=== PATIENT | male | born 1990 | race Caucasian/White ===

== ENCOUNTER 2017-04-05 17:00 | Emergency (ER) | payer OTHER ==
[~2017-04-05] VITALS: Ht 175.3 cm; Wt 87.4 kg
[2017-04-05 17:00] VITALS: BP 146/67
[2017-04-05] MEDS ORDERED: TRAM50TA PO (17:22)
[2017-04-05] MEDS ORDERED: PRED20TA PO (17:22)
--- NOTE | 2017-04-05 17:25 | PHYS DOC ---
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 Patient states that 2 days ago during PT he felt as if his left upper back muscles under the spine of the scapula began to get sore. Since that time the muscles have stiffened and become painful, worse with movement and deep breaths and relieved with rest. He called the triage nurse at [facility] she recommended heating pad he has been trying that with Tylenol without any relief. He denies any actual twinge or pops during workouts, no cough or shortness of breath no fever chills or body aches. No prior back issues, no midline or bony pain. Timing/Duration: other Severity: moderate Modifying Factors: worse with movement, improves with rest Associated Symptoms: other Allergies: Coded Allergies: No Known Drug Allergies (Unverified , 04/05/17) Past Medical History Medical History: no pertinent history Surgical History: noncontributory Social History Smoker: non-smoker Alcohol: rarely Drugs: none Review of Systems Constitutional: denies chills, denies fever Respiratory: denies cough, denies shortness of breath Cardiovascular: denies chest pain, denies palpitations Gastrointestinal: denies nausea, denies vomiting Musculoskeletal: see HPI Psychiatric/Neurological: denies numbness, denies paresthesia, denies weakness Physical Exam General Appearance: WD/WN, no apparent distress Ear, Nose, Throat: hearing grossly normal, normal ENT inspection Neck: non-tender, full range of motion Respiratory: normal breath sounds, no respiratory distress Back: no CVA tenderness, no vertebral tenderness, other (subscapularis muscle hypertonicity with tenderness, no palpable deformity swelling or ecchymosis. No bony tenderness) Extremities: normal range of motion, non-tender, normal inspection Neurologic/Psychiatric: manager field services II-XII nml as tested, no motor/sensory deficits, alert, normal mood/affect, oriented x 3 Skin: normal color, warm/dry Orders, Labs, Meds I discussed the treatment plan at length. I discussed signs and symptoms to monitor as well as urgent indications to return to the department. I discussed prescription and [id number] medications as well as adjunct therapeutic modalities. I discussed follow-up at [facility] on Friday the patient expressed agreement and understanding with the treatment plan. Toradol 60 mg IM. Departure Time of Disposition: 17:22 Disposition: 01 HOME, SELF-CARE Diagnosis: Thoracic strain Condition: GOOD Patient Instructions: Thoracic Strain, Ocit-to-Zdog Additional Instructions: Keep activity to "pain-free." Heating pad 15 minutes, 4-6 times daily followed by gentle stretching. OTC tylenol as needed. Rx: tramadol 50mg #12, prednisone Take tramadol with food to avoid nausea, sedation precautions. Consider chiropractic or massage as adjunct to therapy. Follow up at [facility] Friday for recheck and further evaluation, possible PT referral. Return to ED with new or changing symptoms. KURT ARRIETA DO Apr 05, 2017 17:25
[2017-04-05] MEDS ORDERED: KETOROLAC 60 MG/2 ML VIAL. IM ONE (17:30)
== END 2017-04-05 17:33 | disposition home or self-care (01) ==
LOC: ER 17:00
DX: S29.012A Strain of muscle and tendon of back wall of thorax, initial encounter (principal); X58.XXXA Exposure to other specified factors, initial encounter; Y93.89 Activity, other specified; Y99.8 Other external cause status; Y92.89 Other specified places as the place of occurrence of the external cause
CPT/HCPCS: 96372; 99283; J1885

== ENCOUNTER 2017-04-10 20:27 | Emergency (ER) | payer OTHER ==
[~2017-04-10] VITALS: Ht 175.3 cm; Wt 84.0 kg
[~2017-04-10 20:27] MED LIST: PRED20TA PO; TRAM50TA PO
[2017-04-10 20:43] VITALS: BP 129/71
[2017-04-10] MEDS ORDERED: IV NORMAL SALINE 1,000ML 1,000 ML IV ONE (21:15)
[2017-04-10] MEDS ORDERED: ONDANSETRON PF 4 MG/2 ML VIAL. IV ONE (21:15)
[2017-04-10] MEDS ORDERED: CONTRAST GIVEN MC PRN (21:15)
[2017-04-10 21:25] LABS: BASO % 0 % (0-3); EOS # 0.1 x10^3/uL (0.0-0.7); EOS % 1 % (0-3); HEMATOCRIT 36.4 % (39.0-53.0); HEMOGLOBIN 12.7 g/dL (13.0-17.5); LYMPH # 2.4 x10^3/uL (1.0-4.8); LYMPH % 24 % (24-48); MEAN CORPUSCULAR HEMOGLOBIN 31 pg (25-35); MEAN CORPUSCULAR HGB CONC 35 g/dL (31-37); MEAN CORPUSCULAR VOLUME 87 fL (79-100); MONO # 0.9 x10^3/uL (0.0-1.1); MONO % 10 % (0-9); NEUT # 6.2 x10^3uL (1.8-7.7); NEUT % 64 % (31-73); PLATELET COUNT 239 x10^3/uL (140-400); RED BLOOD COUNT 4.17 x10^6/uL (4.30-5.70); RED CELL DISTRIBUTION WIDTH 13.5 % (11.5-14.5); WHITE BLOOD COUNT 9.7 x10^3/uL (4.0-11.0)
[2017-04-10] MEDS ORDERED: IOHEXOL 300 MG/ML 75 ML VIAL. IV ONE (21:30)
[2017-04-10 21:37] LABS: ALBUMIN 3.6 g/dL (3.4-5.0); CALCIUM 8.6 mg/dL (8.5-10.1); CREATININE 1.3 mg/dL (0.7-1.3); GFR 66.7; POTASSIUM 3.4 mmol/L (3.5-5.1); TOTAL BILIRUBIN 0.2 mg/dL (0.2-1.0); TOTAL PROTEIN 7.1 g/dL (6.4-8.2)
--- NOTE | 2017-04-10 21:54 | RAD ---
Indication: Severe lower abdominal pain with pressure, constipation nausea and vomiting. TECHNIQUE: CT abdomen and pelvis with 75 mL of Omnipaque 350 with multiplanar reformats. COMPARISON: None FINDINGS: Heart is normal in size. No pericardial or pleural effusion. Clear lung bases. Liver, gallbladder, gallbladder, pancreas, adrenal glands are within normal limits. No nephrolithiasis or hydronephrosis. No retroperitoneal or pelvic adenopathy. No bowel obstruction. Normal appendix. Bladder within normal limits. Prostate and seminal vesicles show no mass lesion. No suspicious bony lesion. IMPRESSION: No acute findings. No bowel obstruction. Normal appendix. No nephrolithiasis. Electronically signed by: Fabian Richardson DO (04/10/2017 9:51 PM) [facility]
[2017-04-10 22:19] LABS: BILIRUBIN,URINE NEG (NEG); CLARITY,URINE CLEAR; COLOR,URINE STRAW; GLUCOSE,URINE NEG (NEG)
[2017-04-10 22:20] LABS: BACTERIA,URINE 0 /HPF (0-FEW); NITRITE,URINE NEG (NEG); UROBILINOGEN,URINE 0.2 mg/dL (0.2 mg/dL); WBC,URINE OCC /HPF (0-4)
[2017-04-10] MEDS ORDERED: DICY10CA53 PO (23:00)
[2017-04-10] MEDS ORDERED: ONDA4TAB10 SL (23:00)
--- NOTE | 2017-04-10 23:00 | PHYS DOC ---
Past History Past Medical History: No Pertinent History Past Surgical History: No Surgical History Alcohol Use: None Drug Use: None Adult General Chief Complaint Chief Complaint: ABDOMINAL PAIN HPI HPI Patient is a 26 year old male who presents with abdominal pain. The patient reports 1 day history of lower abdominal pain greatest in right lower quadrant. Reports associated nausea & difficulty having bowel movement. Reports normal bowel movement yesterday. Denies fevers/chills, vomiting, diarrhea, dysuria, hematuria. Denies previous history of similar symptoms, denies history of abdominal surgeries. Review of Systems Review of Systems Constitutional: Denies fever or chills Eyes: Denies change in visual acuity HENT: Denies nasal congestion or sore throat Respiratory: Denies cough or shortness of breath Cardiovascular: Denies chest pain or edema GI: Reports abdominal pain, nausea, denies vomiting, bloody stools or diarrhea : Denies dysuria or hematuria Musculoskeletal: Denies back pain or joint pain Integument: Denies rash or skin lesions Neurologic: Denies headache All other systems were reviewed and found to be within normal limits, except as documented in this note. Current Medications Current Medications Current Medications Medications (Trade) Dose Ordered Sig/Víctor Start Time Stop Time Status Last Admin Dose Admin Fentanyl Citrate (Fentanyl 2ml Vial) 50 mcg PRN Q15MIN PRN 04/10/17 21:15 04/11/17 21:14 04/10/17 21:28 50 MCG Info (Do NOT chart on this entry -- for MONITORING) 1 each PRN DAILY PRN 04/10/17 21:15 04/12/17 21:14 Iohexol (Omnipaque 300 Mg/ml) 75 ml 1X ONCE 04/10/17 21:30 04/10/17 21:31 DC 04/10/17 21:23 75 ML Ondansetron HCl (Zofran) 4 mg 1X ONCE 04/10/17 21:15 04/10/17 21:16 DC 04/10/17 21:15 4 MG Sodium Chloride 1,000 ml @ 1,000 mls/hr 1X ONCE 04/10/17 21:15 04/10/17 22:15 DC 04/10/17 21:15 1,000 MLS/HR Allergies Allergies Allergies Coded Allergies Type Severity Reaction Last Updated Verified No Known Drug Allergies 04/05/17 No Physical Exam Physical Exam Constitutional: Well developed, well nourished, no acute distress, non-toxic appearance. HENT: Normocephalic, atraumatic, bilateral external ears normal, oropharynx moist, nose normal. Eyes: conjunctiva normal, no discharge. Neck: supple, no stridor. Cardiovascular: RRR, no murmurs, no edema. Lungs & Thorax: LCTAB, no wheezing, no respiratory distress. Abdomen: soft, moderate right lower quadrant tenderness with voluntary guarding , no rebound tenderness, also suprapubic tenderness is noted, no masses or pulsatile masses, nondistended. Skin: Warm, dry, no erythema, no rash. Back: No CVA tenderness. Extremities: No tenderness, no edema. Neurologic: Alert and oriented X 3, no focal deficits noted. Psychologic: Affect normal, judgement normal, mood normal. Current Patient Data Vital Signs Vital Signs Date Time Temp Pulse Resp B/P (MAP) Pulse Ox O2 Delivery O2 Flow Rate FiO2 04/10/17 21:28 20 98 Room Air 04/10/17 20:43 98.1 77 Lab Results Laboratory Tests Test 04/10/17 21:03 04/10/17 21:50 White Blood Count 9.7 x10^3/uL (4.0-11.0) Red Blood Count 4.17 x10^6/uL (4.30-5.70) L Hemoglobin 12.7 g/dL (13.0-17.5) L Hematocrit 36.4 % (39.0-53.0) L Mean Corpuscular Volume 87 fL (79-100) Mean Corpuscular Hemoglobin 31 pg (25-35) Mean Corpuscular Hemoglobin Concent 35 g/dL (31-37) Red Cell Distribution Width 13.5 % (11.5-14.5) Platelet Count 239 x10^3/uL (140-400) Neutrophils (%) (Auto) 64 % (31-73) Lymphocytes (%) (Auto) 24 % (24-48) Monocytes (%) (Auto) 10 % (0-9) H Eosinophils (%) (Auto) 1 % (0-3) Basophils (%) (Auto) 0 % (0-3) Neutrophils # (Auto) 6.2 x10^3uL (1.8-7.7) Lymphocytes # (Auto) 2.4 x10^3/uL (1.0-4.8) Monocytes # (Auto) 0.9 x10^3/uL (0.0-1.1) Eosinophils # (Auto) 0.1 x10^3/uL (0.0-0.7) Basophils # (Auto) 0.0 x10^3/uL (0.0-0.2) Sodium Level 144 mmol/L (136-145) Potassium Level 3.4 mmol/L (3.5-5.1) L Chloride Level 105 mmol/L (98-107) Carbon Dioxide Level 27 mmol/L (21-32) Anion Gap 12 (6-14) Blood Urea Nitrogen 21 mg/dL (8-26) Creatinine 1.3 mg/dL (0.7-1.3) Estimated GFR (Cockcroft-Gault) 66.7 BUN/Creatinine Ratio 16 (6-20) Glucose Level 96 mg/dL (70-99) Calcium Level 8.6 mg/dL (8.5-10.1) Total Bilirubin 0.2 mg/dL (0.2-1.0) Aspartate Amino Transferase (AST) 14 U/L (15-37) L Alanine Aminotransferase (ALT) 29 U/L (16-63) Alkaline Phosphatase 79 U/L (46-116) Total Protein 7.1 g/dL (6.4-8.2) Albumin 3.6 g/dL (3.4-5.0) Albumin/Globulin Ratio 1.0 (1.0-1.7) Urine Collection Type Unknown Urine Color Straw Urine Clarity Clear Urine pH 5.5 Urine Specific Kersey 1.010 Urine Protein 100 mg/dl (NEG-TRACE) Urine Glucose (UA) Neg mg/dL (NEG) Urine Ketones (Stick) Neg mg/dL (NEG) Urine Blood Small (NEG) Urine Nitrite Neg (NEG) Urine Bilirubin Neg (NEG) Urine Urobilinogen Dipstick 0.2 mg/dL (0.2 mg/dL) Urine Leukocyte Esterase Neg (NEG) Urine RBC 3-5 /HPF (0-2) Urine WBC Occ /HPF (0-4) Urine Squamous Epithelial Cells None /LPF Urine Bacteria 0 /HPF (0-FEW) Urine Mucus Slight /LPF EKG EKG [] Radiology/Procedures Radiology/Procedures PROCEDURE: CT ABD PELV W/ IV CONTRST ONLY Indication: Severe lower abdominal pain with pressure, constipation nausea and vomiting. TECHNIQUE: CT abdomen and pelvis with 75 mL of Omnipaque 350 with multiplanar reformats. COMPARISON: None FINDINGS: Heart is normal in size. No pericardial or pleural effusion. Clear lung bases. Liver, gallbladder, gallbladder, pancreas, adrenal glands are within normal limits. No nephrolithiasis or hydronephrosis. No retroperitoneal or pelvic adenopathy. No bowel obstruction. Normal appendix. Bladder within normal limits. Prostate and seminal vesicles show no mass lesion. No suspicious bony lesion. IMPRESSION: No acute findings. No bowel obstruction. Normal appendix. No nephrolithiasis. Electronically signed by: Fabian Rogers DO (04/10/2017 9:51 PM) [facility] DICTATED AND SIGNED BY: FABIAN ROGERS DO DATE: 04/10/172144[] Course & Med Decision Making Course & Med Decision Making Pertinent Labs and Imaging studies reviewed. (See chart for details) The patient presents with abdominal pain. Gave IV fluids, zofran, pain medication. Obtained labs, CT abdomen/pelvis. No acute cause of pain was identified. Recommend rest, hydration with clear liquids, zofran for nausea, bentyl for pain. Follow up with primary care in 2-3 days if not improving. Come back for high fever, severe pain, uncontrolled vomiting, any otherwise worsening condition. Discharged home in stable condition. [] Dragon Disclaimer Dragon Disclaimer This electronic medical record was generated, in whole or in part, using a voice recognition dictation system. Departure Departure: Impression: Primary Impression: Abdominal pain Disposition: 01 HOME, SELF-CARE Condition: STABLE Referrals: PCP,UNKNOWN (PCP) Patient Instructions: Abdominal Pain, [id number] Additional Instructions: You were seen in the emergency department today for abdominal pain. Tests here did not show serious cause of symptoms. This could be a virus. Please rest, drink small sips of clear liquids to stay hydrated. Take Zofran for nausea and Bentyl for pain. Follow-up with a primary care physician in 2-3 days if not improving. Return to the emergency department for high fever, severe pain, uncontrolled vomiting, any otherwise worsening condition. Scripts Dicyclomine Hcl (BENTYL) 10 Mg Capsule 1 CAP PO TID Y for abdominal cramps, #20 CAP 0 Refills Prov: LIDIA GUTIERREZ MD 04/10/17 Ondansetron (ZOFRAN ODT) 4 Mg Tab.rapdis 1 TAB SL Q8HRS, #10 TAB Prov: LIDIA GUTIERREZ MD 04/10/17 LIDIA GUTIERREZ MD Apr 10, 2017 23:00
[2017-04-10] MEDS ORDERED: ONDANSETRON 4MG ODT 4TABLET STARTPACK. PO ONE (23:30)
[2017-04-10] MEDS ORDERED: ONDANSETRON ODT 4 MG TAB.RAPDIS PO ONE (23:30)
== END 2017-04-11 01:17 | disposition home or self-care (01) ==
LOC: ER 20:27
DX: R10.31 Right lower quadrant pain (principal); R11.0 Nausea
CPT/HCPCS: 36415; 74177; 80053; 81001; 85025; 96361; 96374; 96375; 99285; J2405; J3010; Q0162; Q9967; J7030

== ENCOUNTER 2017-10-22 00:08 | Emergency (ER) | payer OTHER ==
[~2017-10-22] VITALS: Ht 175.3 cm; Wt 84.0 kg
[~2017-10-22 00:08] MED LIST changes: +DICY10CA53 PO; +ONDA4TAB10 SL
--- NOTE | 2017-10-22 00:38 | ED.ADGEN ---
Past History Past Medical History: No Pertinent History Past Surgical History: No Surgical History Alcohol Use: None Drug Use: None Adult General HPI HPI Patient is a 26 year old male who presents with muscle spasm in the back. Patient states he was working out earlier today when he had a slow onset of pain and muscle spasm in the thoracic area of the back. He does relate that he had very similar symptoms in the past. The pain continued to worsen. This evening, it hurt too much to take deep breaths and he felt that he could not inflate his lungs. He has a follow-up appointment with his post physician in 2 days but he could not wait for that appointment because the pain was too severe. He has no focal neurologic complaints. He has not had a fever or chills. His pain is worse with movement and with deep inspiration. Pain is over the paraspinal muscles in the thoracic area. There is no midline tenderness. Review of Systems Review of Systems Constitutional: Denies fever or chills Eyes: Denies change in visual acuity HENT: Denies nasal congestion or sore throat Respiratory: Denies cough or shortness of breath Cardiovascular: No additional information not addressed in HPI Musculoskeletal: As described in history of present illness Integument: Denies rash or skin lesions Neurologic: Denies headache Endocrine: Denies polyuria or polydipsia All other systems were reviewed and found to be within normal limits, except as documented in this note. Current Medications Current Medications Current Medications Medications (Trade) Dose Ordered Sig/[facility] Start Time Stop Time Status Last Admin Dose Admin Acetaminophen/ Hydrocodone Bitart (Lortab 5/325) 1 tab 1X ONCE 10/22/17 01:00 10/22/17 01:01 DC 10/22/17 00:50 1 TAB Diazepam (Valium) 5 mg 1X ONCE 10/22/17 01:00 10/22/17 01:01 DC 10/22/17 00:50 5 MG Ibuprofen (Motrin) 800 mg 1X ONCE 10/22/17 01:00 10/22/17 01:01 DC 10/22/17 00:50 800 MG Allergies Allergies Allergies Coded Allergies Type Severity Reaction Last Updated Verified No Known Drug Allergies 04/05/17 No Physical Exam Physical Exam Constitutional: Well developed, well nourished, no acute distress, non-toxic appearance. HENT: Normocephalic, atraumatic, bilateral external ears normal, oropharynx moist Eyes: PERRLA, EOMI, conjunctiva normal, no discharge. Neck: Normal range of motion, no tenderness Cardiovascular:Heart rate regular rhythm Lungs & Thorax: Air movement bilaterally although the exam is limited as the patient has poor inspiratory effort Skin: Warm, dry, no erythema, no rash. Back: Pain and muscle spasm is present in the paraspinal muscles of the thoracic spine on both sides. There is no midline tenderness. Extremities: No tenderness, no edema. [] Neurologic: Alert and oriented X 3, normal motor function Psychologic: Affect normal, judgement normal Current Patient Data Vital Signs Vital Signs Date Time Temp Pulse Resp B/P (MAP) Pulse Ox O2 Delivery O2 Flow Rate FiO2 10/22/17 00:08 98.2 69 16 96 Room Air EKG EKG [] Radiology/Procedures Radiology/Procedures [] Course & Med Decision Making Course & Med Decision Making Pertinent Labs and Imaging studies reviewed. (See chart for details) Patient is seen and examined. He has poor effort with lung exam. Because of this , chest x-ray is ordered. Otherwise, the patient presents with musculoskeletal back pain. I did review his [place] prescription record. He has received 155 hydrocodone since the first of the year. I question the patient about this. He states he had some wisdom teeth removed and then had a separate surgery from that which is when he was prescribed medications. He has received no prescriptions since August 24. He does seem to be in some distress this evening. He is ordered to have one [place], one Valium, and 1 ibuprofen in the ER. Pending normal chest x-ray, patient will be discharged home on the same. He already has close follow-up with his primary care physician scheduled. Final Impression Final Impression Strain of thoracic back muscles Michael Disclaimer Dragon Disclaimer This electronic medical record was generated, in whole or in part, using a voice recognition dictation system. SAIMA LUZ DO October 22, 2017 00:38
[2017-10-22] MEDS ORDERED: diazePAM 5 MG TABLET PO ONE (01:00)
[2017-10-22] MEDS ORDERED: IBUPROFEN 800 MG TABLET. PO ONE (01:00)
[2017-10-22] MEDS ORDERED: HYDROcodone/APAP 5/325MG 1 TAB TABLET PO ONE (01:00)
[2017-10-22] MEDS ORDERED: HYDR-2762 PO (01:12)
[2017-10-22] MEDS ORDERED: DIAZ5TAB PO (01:12)
[2017-10-22] MEDS ORDERED: IBUP800T19 PO (01:12)
[2017-10-22 01:18] VITALS: BP 129/75
--- NOTE | 2017-10-22 08:09 | RAD ---
Portable chest, 10/22/2017: HISTORY: Upper back pain The heart size and pulmonary vascularity are normal. No pulmonary infiltrates are seen. There is no evidence of pleural fluid. IMPRESSION: No acute cardiopulmonary abnormality is detected. Electronically signed by: Everardo Navas MD (10/22/2017 8:05 AM) [facility]
== END 2017-10-22 01:45 | disposition home or self-care (01) ==
LOC: ER 00:08
DX: S29.012A Strain of muscle and tendon of back wall of thorax, initial encounter (principal); X58.XXXA Exposure to other specified factors, initial encounter; Y93.89 Activity, other specified; Y99.8 Other external cause status; Y92.89 Other specified places as the place of occurrence of the external cause
CPT/HCPCS: 71045; 99284

== ENCOUNTER 2018-04-05 12:40 | Emergency (ER) | payer OTHER ==
[~2018-04-05] VITALS: Ht 175.3 cm; Wt 96.6 kg
[~2018-04-05 12:40] MED LIST changes: +DIAZ5TAB PO; +HYDR-2762 PO; +IBUP800T19 PO
--- NOTE | 2018-04-05 13:08 | PHYS DOC ---
Past History Past Medical History: Anxiety, Depression Past Surgical History: No Surgical History Alcohol Use: Occasionally Drug Use: None Adult General Chief Complaint Chief Complaint: NAUSEA/VOMITING/DIARRHEA HPI HPI 27-year-old male presents with vomiting and diarrhea. The patient started vomiting early this morning. He has had 3 episodes while in the ER. He said 2 rounds of loose stool. He denies blood in either. Patient ate some salmon last night that he had thought out and then re-frozen thought out cooked. He is concerned is may have caused his illness. He did drink some alcohol yesterday but only about 3 drinks. He typically only drinks one day a week. Patient denies fever or chills. He has diffuse abdominal pain that started after he started vomiting. Review of Systems Review of Systems Constitutional: Denies fever or chills [] Eyes: Denies change in visual acuity, redness, or eye pain [] HENT: Denies nasal congestion or sore throat [] Respiratory: Denies cough or shortness of breath [] Cardiovascular: No additional information not addressed in HPI [] GI: Diffuse abdominal pain, vomiting, diarrhea[] : Denies dysuria or hematuria [] Musculoskeletal: Denies back pain or joint pain [] Integument: Denies rash or skin lesions [] Neurologic: Denies headache, focal weakness or sensory changes [] Endocrine: Denies polyuria or polydipsia [] All other systems were reviewed and found to be within normal limits, except as documented in this note. Current Medications Current Medications Current Medications Medications (Trade) Dose Ordered Sig/Víctor Start Time Stop Time Status Last Admin Dose Admin Ondansetron HCl (Zofran) 4 mg 1X ONCE 04/05/18 13:15 04/05/18 13:16 UNV Sodium Chloride 1,000 ml @ 1,000 mls/hr 1X ONCE 04/05/18 13:15 04/05/18 14:14 UNV Allergies Allergies Allergies Coded Allergies Type Severity Reaction Last Updated Verified No Known Drug Allergies 04/05/17 No Physical Exam Physical Exam Constitutional: Well developed, well nourished, no acute distress, non-toxic appearance. Vomiting [] HENT: Normocephalic, atraumatic, bilateral external ears normal, oropharynx moist, no oral exudates, nose normal. [] Eyes: PERRLA, EOMI, conjunctiva normal, no discharge. [] Neck: Normal range of motion, no tenderness, supple, no stridor. [] Cardiovascular:Heart rate regular rhythm, no murmur [] Lungs & Thorax: Bilateral breath sounds clear to auscultation [] Abdomen: Soft, mild generalized tenderness[] Skin: Warm, dry, no erythema, no rash. [] Back: No tenderness, no CVA tenderness. [] Extremities: No tenderness, no cyanosis, no clubbing, ROM intact, no edema. [] Neurologic: Alert and oriented X 3, normal motor function, normal sensory function, no focal deficits noted. [] Psychologic: Affect normal, judgement normal, mood normal. [] Current Patient Data Vital Signs Vital Signs Date Time Temp Pulse Resp B/P (MAP) Pulse Ox O2 Delivery O2 Flow Rate FiO2 04/05/18 12:55 98.1 90 16 95 Room Air EKG EKG [] Radiology/Procedures Radiology/Procedures [] Course & Med Decision Making Course & Med Decision Making Pertinent Labs and Imaging studies reviewed. (See chart for details) Patient's labs are unremarkable. His vomiting was controlled with Zofran 4 mg IV. He still has some abdominal discomfort, but is feeling better overall. I recommended supportive care at home. I will discharge him with Zofran ODT 4 mg tabs. He is stable for discharge at this time. [] Dragon Disclaimer Dragon Disclaimer This electronic medical record was generated, in whole or in part, using a voice recognition dictation system. Departure Departure: Referrals: MARTINEZ GAITAN PA-C (PCP) DANIEL OZUNA DO Apr 05, 2018 13:08
[2018-04-05] MEDS ORDERED: IV NORMAL SALINE 1,000ML 1,000 ML IV ONE (13:15)
[2018-04-05] MEDS ORDERED: ONDANSETRON PF 4 MG/2 ML VIAL. IV ONE (13:30)
[2018-04-05 13:38] LABS: BASO # 0.1 x10^3/uL (0.0-0.2); BASO % 0 % (0-3); EOS % 0 % (0-3); HEMATOCRIT 43.9 % (39.0-53.0); LYMPH # 0.4 x10^3/uL (1.0-4.8); LYMPH % 4 % (24-48); MEAN CORPUSCULAR HEMOGLOBIN 29 pg (25-35); MEAN CORPUSCULAR HGB CONC 34 g/dL (31-37); MEAN CORPUSCULAR VOLUME 86 fL (79-100); MONO # 0.4 x10^3/uL (0.0-1.1); MONO % 3 % (0-9); NEUT # 10.5 x10^3uL (1.8-7.7); NEUT % 92 % (31-73); PLATELET COUNT 275 x10^3/uL (140-400); RED CELL DISTRIBUTION WIDTH 12.3 % (11.5-14.5); WHITE BLOOD COUNT 11.4 x10^3/uL (4.0-11.0)
[2018-04-05 13:53] LABS: ALBUMIN 4.1 g/dL (3.4-5.0); CALCIUM 8.9 mg/dL (8.5-10.1); GFR 89.6; POTASSIUM 4.4 mmol/L (3.5-5.1); TOTAL BILIRUBIN 0.6 mg/dL (0.2-1.0); TOTAL PROTEIN 8.4 g/dL (6.4-8.2)
[2018-04-05] MEDS ORDERED: ONDA4TAB10 SL (15:31)
[2018-04-05 15:39] VITALS: BP 125/71
== END 2018-04-05 15:40 | disposition home or self-care (01) ==
LOC: ER 12:40
DX: R11.11 Vomiting without nausea (principal); R19.7 Diarrhea, unspecified; R10.84 Generalized abdominal pain; F41.9 Anxiety disorder, unspecified; F32.9 Major depressive disorder, single episode, unspecified
CPT/HCPCS: 36415; 80053; 83690; 85025; 96361; 96374; 99284; J2405; J7030

== ENCOUNTER 2019-07-14 08:50 | Emergency (ER) | payer OTHER ==
[~2019-07-14] VITALS: Ht 175.3 cm; Wt 84.0 kg
[~2019-07-14 08:50] MED LIST changes: -HYDR-2762 PO; +HYDR-2765 PO
[2019-07-14 08:51] VITALS: BP 125/71
[2019-07-14] MEDS ORDERED: ORPH-16 PO (09:42)
[2019-07-14] MEDS ORDERED: HYDR-3165 PO (09:42)
--- NOTE | 2019-07-14 09:42 | PHYS DOC ---
Past History Past Medical History: Anxiety, Depression Past Surgical History: No Surgical History Alcohol Use: Occasionally Drug Use: None Adult General Chief Complaint Chief Complaint: BACK PAIN OR INJURY HPI HPI Patient is a 28-year-old male who presents to the ED with back pain following his PT assessment for the this morning. He has a history of a pilonidal cyst repaired with surgery. Reports he had a sensation that the cyst was reforming and had called his surgeon a couple of days ago and they had started him on some empiric antibiotics which is currently taking. He states that during a portion of his training he felt a sharp pain and drainage in his upper gluteal crease.That radiates to his low back and surrounding soft tissue. He stated that the drainage was a clear bloody drainage. He tried taking Tylenol and ibuprofen without improvement of his symptoms. He states that activity that causes friction in the area of the upper gluteal crease causes worsening pain. He currently rates the pain as 8 out of 10 at its worse. Review of Systems Review of Systems Constitutional: Denies fever or chills Cardiovascular: Denies chest pain or palpitations GI: Denies nausea or abdominal pain Musculoskeletal: Admits low back pain, denies joint pain Integument: Denies rash, admits history of pilonidal cyst , surgical scar lower back/upper gluteal region Complete systems were reviewed and found to be within normal limits, except as documented in this note. Family History Family History No pertinent family history Allergies Allergies Allergies Coded Allergies Type Severity Reaction Last Updated Verified No Known Drug Allergies 04/05/17 No Physical Exam Physical Exam Constitutional: Well developed, well nourished, no acute distress, uncomfortable appearance HENT: Normocephalic, atraumatic, oropharynx moist Eyes: EOMI, conjunctiva normal, no discharge Neck: Normal range of motion, no tenderness, supple Cardiovascular: Heart rate normal, regular rhythm Lungs & Thorax: Bilateral breath sounds clear to auscultation, no wheezing Abdomen: Soft, no tenderness Skin: Warm, dry, no erythema, open sinus with serosanguineous drainage in the superior gluteal crease Back: Low back paraspinal tenderness to palpation, no CVA tenderness Extremities: No tenderness, ROM intact, no edema Neurologic: Alert and oriented, no focal deficits noted Psychologic: Affect normal, judgment normal EKG EKG [] Radiology/Procedures Radiology/Procedures [] Course & Med Decision Making Course & Med Decision Making 28-year-old male presents to the ED with low back/superior gluteal crease pain. Patient has history of pilonidal cyst that was surgically removed. He states that this morning while doing sit ups he felt a sharp pain and drainage located in his superior gluteal crease radiating to his low back and surrounding soft tissues. He denies any current fevers or chills. Serosanguineous drainage noted from open sinus. He is currently on day 5 of amoxicillin. He tried Tylenol and ibuprofen this morning with no improvement He rates it as an 8 out of 10 at its worse. Due to afebrile state and serosanguineous drainage an infection is unlikely at this time. Patient was also told to finish course of amoxicillin. No I&D required at this time. Patient drove himself to the ED and therefore was given prescriptions to treat symptomatically. Patient was encouraged to follow-up with surgery for possible intervention of a possible reoccurrence of pilonidal cyst. Patient stable for discharge with outpatient follow-up with PCP/surgeon. Discussed findings and plan with patient, who acknowledges understanding and agreement. Dragon Disclaimer Dragon Disclaimer This electronic medical record was generated, in whole or in part, using a voice recognition dictation system. Departure Departure: Impression: Primary Impression: Back pain Additional Impression: Pilonidal cyst without infection Disposition: 01 HOME, SELF-CARE Condition: STABLE Referrals: PCP,NO (PCP) Patient Instructions: Back Pain, Adult, [id number], Pilonidal Cyst, Care After, Sciatica with [facility] Scripts Hydrocodone Bit/Acetaminophen (NORCO 5-325 TABLET) 1 Each Tablet 0.5-1 TAB PO Q6HRS PRN for PAIN, #10 TAB Prov: AGUILA CANO DO 07/14/19 Orphenadrine Citrate (ORPHENADRINE CITRATE) 100 Mg Tablet.er 1 TAB PO BID PRN for MUSCLE PAIN, #14 TAB 0 Refills Prov: AGUILA CANO DO 07/14/19 Problem Qualifiers Primary Impression: Back pain Back pain location: low back pain Chronicity: acute Back pain laterality: left Sciatica presence: with sciatica Sciatica laterality: sciatica of left side Qualified Codes: M54.42 - Lumbago with sciatica, left side AGUILA CANO DO Jul 14, 2019 09:42
== END 2019-07-14 09:45 | disposition home or self-care (01) ==
LOC: ER 08:50
DX: L05.91 Pilonidal cyst without abscess (principal); M54.42 Lumbago with sciatica, left side
CPT/HCPCS: 99283

== ENCOUNTER 2019-10-21 09:31 | Emergency (ER) | payer OTHER ==
[~2019-10-21] VITALS: Ht 175.3 cm; Wt 98.9 kg
[~2019-10-21 09:31] MED LIST changes: +HYDR-3165 PO; +ORPH-16 PO
[2019-10-21] MEDS ORDERED: HYDROcodone/APAP 5/325MG 1 TAB TABLET PO ONE (10:15)
[2019-10-21] MEDS ORDERED: HYDR-3165 PO (10:15)
[2019-10-21] MEDS ORDERED: CYCL-331 PO (10:15)
--- NOTE | 2019-10-21 10:16 | PHYS DOC ---
Past History Past Medical History: No Pertinent History Additional Past Medical Histor: back pain Past Surgical History: Other Additional Past Surgical Histo: pilonidal cyst Alcohol Use: None Drug Use: None Adult General Chief Complaint Chief Complaint: BACK PAIN OR INJURY HPI HPI Patient is a 28 year old male who presents with complaint of right-sided shoulder and back pain. The patient states that his symptoms have been present over the past 3 days. He notes sharp pain along the right side of his neck that extends down his spine towards his mid back and also radiates over towards the back of his right shoulder. He does state that 5 days ago he was carrying his 1-year-old for several hours in a child carrier on his back and does note symptoms started to worsen the next day. States that pain improves when he tilts his head away from his right shoulder. The patient states that this morning he took 880 mg of naproxen this morning with no significant improvement in symptoms. States that he has experienced intermittent numbness and shooting pain that goes through his right arm towards his right hand. Denies any numbness or tingling currently. Pain worsens with movement of the right shoulder. Denies any recent fall, trauma, or injury. Review of Systems Review of Systems Constitutional: Denies fever or chills [] Eyes: Denies change in visual acuity, redness, or eye pain [] HENT: Denies nasal congestion or sore throat [] Respiratory: Denies cough or shortness of breath [] Cardiovascular: Denies chest pain or edema [] GI: Denies abdominal pain, nausea, vomiting, bloody stools or diarrhea [] : Denies dysuria or hematuria [] Musculoskeletal: Upper right-sided back pain, right shoulder pain, right neck pain [] Integument: Denies rash or skin lesions [] Neurologic: Numbness and tingling in right hand, denies focal weakness [] All other systems were reviewed and found to be within normal limits, except as documented in this note. Allergies Allergies Allergies Coded Allergies Type Severity Reaction Last Updated Verified No Known Drug Allergies 10/21/19 No Physical Exam Physical Exam Constitutional: Alert, afebrile, appears in mild to moderate discomfort. [] HENT: Normocephalic, atraumatic, bilateral external ears normal, oropharynx moist, no oral exudates, nose normal. [] Eyes: PERRLA, EOMI, conjunctiva normal, no discharge. [] Neck: Normal range of motion, no tenderness, supple, no stridor. [] Cardiovascular:Heart rate regular rhythm, no murmur [] Lungs & Thorax: Bilateral breath sounds clear to auscultation [] Abdomen: Bowel sounds normal, soft, no tenderness, no masses, no pulsatile masses. [] Skin: Warm, dry, no erythema, no rash. [] Back: No cervical or thoracic midline tenderness to palpation, soft tissue tenderness palpation along paraspinous musculature of cervical and thoracic spine in distribution of right trapezius muscle, no CVA tenderness. [] Extremities: No tenderness, no cyanosis, no clubbing, ROM intact, no edema. [] Neurologic: Alert and oriented X 3, normal motor function, normal sensory function, no focal deficits noted. [] Current Patient Data Vital Signs Vital Signs Date Time Temp Pulse Resp B/P (MAP) Pulse Ox O2 Delivery O2 Flow Rate FiO2 10/21/19 09:31 98.1 66 18 127/81 (96) 99 Room Air Lab Results Not performed EKG EKG Not performed [] Radiology/Procedures Radiology/Procedures Not performed [] Course & Med Decision Making Course & Med Decision Making Pertinent Labs and Imaging studies reviewed. (See chart for details) The patient symptoms appear consistent with acute trapezius muscle strain. Patient treated with Hemet in the emergency department. Discharged with prescription for Hemet and Flexeril. Advised patient on appropriate dosing of naproxen. Informed patient that he should take no more than 440 mg of naproxen per dose and that he could take this dose no more than twice daily. Recommended the patient follow-up with his primary care provider tomorrow for reevaluation and advised return to the emergency department for any worsening symptoms. Patient voiced understanding and agreement with treatment plan. PPE: I wore Level 3 mask, eye protection, and gloves during this patient encounter. [] Dragon Disclaimer Dragon Disclaimer This electronic medical record was generated, in whole or in part, using a voice recognition dictation system. Departure Departure: Impression: Primary Impression: Strain of right trapezius muscle Disposition: HOME/RESIDENCE PRIOR TO ADM Condition: STABLE Referrals: PCP,UNKNOWN (PCP) Patient Instructions: Muscle Strain Additional Instructions: Follow-up with your primary care provider tomorrow for reevaluation. Return to the emergency department for any worsening symptoms. Scripts Cyclobenzaprine Hcl (CYCLOBENZAPRINE HCL) 10 Mg Tablet 1 TAB PO TID PRN for MUSCLE PAIN, #20 TAB Prov: MARIO DALY MD 10/21/19 Hydrocodone Bit/Acetaminophen (NORCO 5-325 TABLET) 1 Each Tablet 1 TAB PO Q4-6HRS PRN for PAIN, #15 TAB 0 Refills Prov: MARIO DALY MD 10/21/19 Problem Qualifiers Primary Impression: Strain of right trapezius muscle Encounter type: initial encounter Qualified Codes: S46.811A - Strain of other muscles, fascia and tendons at shoulder and upper arm level, right arm, initial encounter MARIO DALY MD October 21, 2019 10:16
[2019-10-21 10:59] VITALS: BP 138/79
== END 2019-10-21 10:59 | disposition home or self-care (01) ==
LOC: ER 09:31
DX: S46.811A Strain of other muscles, fascia and tendons at shoulder and upper arm level, right arm, initial encounter (principal); X50.1XXA Overexertion from prolonged static or awkward postures, initial encounter; X50.0XXA Overexertion from strenuous movement or load, initial encounter; Y93.89 Activity, other specified; Y92.89 Other specified places as the place of occurrence of the external cause; Y99.8 Other external cause status
CPT/HCPCS: 99283

== ENCOUNTER 2020-02-26 11:01 | Emergency (ER) | payer OTHER ==
[~2020-02-26] VITALS: Ht 175.3 cm; Wt 94.4 kg
[~2020-02-26 11:01] MED LIST changes: +CYCL-331 PO
[2020-02-26] MEDS ORDERED: IOHEXOL 300 MG/ML 75 ML VIAL. IV ONE (12:00)
[2020-02-26] MEDS ORDERED: IOHEXOL 240 MG/ML 50ML VIAL. PO ONE (12:00)
[2020-02-26 12:13] LABS: BASO % 1 % (0-3); EOS # 0.1 x10^3/uL (0.0-0.7); EOS % 2 % (0-3); HEMATOCRIT 40.1 % (39.0-53.0); HEMOGLOBIN 13.6 g/dL (13.0-17.5); LYMPH # 1.5 x10^3/uL (1.0-4.8); LYMPH % 25 % (24-48); MEAN CORPUSCULAR HEMOGLOBIN 30 pg (25-35); MEAN CORPUSCULAR HGB CONC 34 g/dL (31-37); MEAN CORPUSCULAR VOLUME 89 fL (79-100); MONO # 0.5 x10^3/uL (0.0-1.1); MONO % 8 % (0-9); NEUT # 3.9 x10^3uL (1.8-7.7); NEUT % 64 % (31-73); PLATELET COUNT 247 x10^3/uL (140-400); RED BLOOD COUNT 4.53 x10^6/uL (4.30-5.70); RED CELL DISTRIBUTION WIDTH 12.5 % (11.5-14.5)
[2020-02-26 12:22] LABS: CREATININE 1.1 mg/dL (0.7-1.3); GFR 79.1; POTASSIUM 4.1 mmol/L (3.5-5.1)
[2020-02-26 12:27] LABS: ALBUMIN 3.8 g/dL (3.4-5.0); TOTAL BILIRUBIN 0.5 mg/dL (0.2-1.0); TOTAL PROTEIN 7.7 g/dL (6.4-8.2)
--- NOTE | 2020-02-26 12:31 | PHYS DOC ---
Past History Past Medical History: No Pertinent History Additional Past Medical Histor: back pain Past Surgical History: Other Additional Past Surgical Histo: pilonidal cyst Alcohol Use: None Drug Use: None Adult General Chief Complaint Chief Complaint: BACK PAIN OR INJURY HPI HPI Patient is a 29-year-old male with a past medical history of pilonidal cyst who presents to the emergency room complaining of pain above his buttocks with drainage. He states he had surgery a year ago where he had a flap placed. He has been doing PT for the last couple of weeks and his pain has been getting worse. He has been septic from these previously. He has not followed up with a nybody since his last surgery but did try to call the surgeon today but has not been able to get a hold of him. He denies any fevers. He states he is unable to sit or lay without significant pain. Review of Systems Review of Systems General: Denies fever, chills, sweats, fatigue Eyes: Denies drainage, blurred vision, eye redness HENT: Denies rhinorrhea, sore throat, earache Respiratory: Denies cough, shortness of breath, wheezing Cardiac: Denies edema, palpitations, chest pain GI: Denies abdominal pain, Nausea, vomiting MSK: Denies back pain, neck pain Skin: Denies rash, jaundice Neuro: Denies headache, dizziness Psychiatric: Denies SI/HI Current Medications Current Medications Current Medications Medications (Trade) Dose Ordered Sig/Víctor Start Time Stop Time Status Last Admin Dose Admin Iohexol (Omnipaque 240 Mg/ml) 30 ml 1X ONCE 02/26/20 12:00 02/26/20 12:01 DC Iohexol (Omnipaque 300 Mg/ml) 75 ml 1X ONCE 02/26/20 12:00 02/26/20 12:01 DC Allergies Allergies Allergies Coded Allergies Type Severity Reaction Last Updated Verified No Known Drug Allergies 10/21/19 No Physical Exam Physical Exam General: Awake, alert, NAD. Well Nourished, well hydrated. Cooperative HEENT: Atraumatic, EOMI, PERRL, airway patent, moist oral mucosa Neck: Supple, trachea midline Respiratory: CTA bilaterally, normal effort, no wheezing/crackles CV: RRR, no murmur, cap refill <2 GI: Soft, nondistended, nontender, no masses MSK: No obvious deformities Skin: Warm, dry. Buttock: prior flap well healed, induration without skin changes below flap, fistula track seen Neuro: A&O x3, speech NL, sensory and motor grossly intact, no focal deficits Psych: Normal affect, normal mood, not suicidal or homicidal Current Patient Data Vital Signs Vital Signs Date Time Temp Pulse Resp B/P (MAP) Pulse Ox O2 Delivery O2 Flow Rate FiO2 02/26/20 11:12 98.3 104 16 139/88 (105) 95 Room Air Lab Results Laboratory Tests Test 02/26/20 12:00 White Blood Count 6.0 x10^3/uL (4.0-11.0) Red Blood Count 4.53 x10^6/uL (4.30-5.70) Hemoglobin 13.6 g/dL (13.0-17.5) Hematocrit 40.1 % (39.0-53.0) Mean Corpuscular Volume 89 fL (79-100) Mean Corpuscular Hemoglobin 30 pg (25-35) Mean Corpuscular Hemoglobin Concent 34 g/dL (31-37) Red Cell Distribution Width 12.5 % (11.5-14.5) Platelet Count 247 x10^3/uL (140-400) Neutrophils (%) (Auto) 64 % (31-73) Lymphocytes (%) (Auto) 25 % (24-48) Monocytes (%) (Auto) 8 % (0-9) Eosinophils (%) (Auto) 2 % (0-3) Basophils (%) (Auto) 1 % (0-3) Neutrophils # (Auto) 3.9 x10^3uL (1.8-7.7) Lymphocytes # (Auto) 1.5 x10^3/uL (1.0-4.8) Monocytes # (Auto) 0.5 x10^3/uL (0.0-1.1) Eosinophils # (Auto) 0.1 x10^3/uL (0.0-0.7) Basophils # (Auto) 0.0 x10^3/uL (0.0-0.2) Sodium Level 140 mmol/L (136-145) Potassium Level 4.1 mmol/L (3.5-5.1) Chloride Level 103 mmol/L (98-107) Carbon Dioxide Level 24 mmol/L (21-32) Anion Gap 13 (6-14) Blood Urea Nitrogen 15 mg/dL (8-26) Creatinine 1.1 mg/dL (0.7-1.3) Estimated GFR (Cockcroft-Gault) 79.1 BUN/Creatinine Ratio 14 (6-20) Glucose Level 91 mg/dL (70-99) Calcium Level 9.0 mg/dL (8.5-10.1) Total Bilirubin Pending Aspartate Amino Transferase (AST) Pending Alanine Aminotransferase (ALT) Pending Alkaline Phosphatase Pending Total Protein Pending Albumin Pending Albumin/Globulin Ratio Pending EKG EKG [] Radiology/Procedures Radiology/Procedures [] Course & Med Decision Making Course & Med Decision Making Pertinent Labs and Imaging studies reviewed. (See chart for details) Patient is a 29-year-old male who presents to the emergency room complaining of pain along where his pilonidal cyst used to be. Patient does have some i nduration and signs of a fistula. Does not have any overlying skin changes. CT will be done to evaluate the extent. Patient was given fluids and pain medication. Patient has a sinus track but no significant signs of abscess. We will place him on antibiotics and have him follow-up with his surgeon. Patient's test results and vitals while in the ED were fully reviewed and discu ssed with the patient. Patient is stable and at this time does not need admission to the hospital. We have discussed strict return precautions and the importance of following up with their Primary Care Physician. Patient stated understanding and was given an opportunity to ask any questions. Patient is in agreement with plan. Dragon Disclaimer Dragon Disclaimer This electronic medical record was generated, in whole or in part, using a voice recognition dictation system. Departure Departure: Impression: Primary Impression: Cellulitis Additional Impression: Fistula Disposition: HOME/RESIDENCE PRIOR TO ADM Condition: STABLE Referrals: PCP,NO (PCP) Patient Instructions: Anal Fistula, Cellulitis Scripts Acetaminophen With Codeine (ACETAMINOPHN-COD 240-24 MG TRUDI) 10 Ml Solution 10 ML PO PRN Q4HRS PRN for pain MDD 60 Milliliter(s) for 4 Days, #240 ML 0 Refills Prov: NEELAM MORROW MD 02/26/20 Problem Qualifiers NEELAM MORROW MD Feb 26, 2020 12:31
[2020-02-26] MEDS ORDERED: IV NORMAL SALINE 50ML 50 ML ONE ×2 (12:45→13:00)
[2020-02-26] MEDS ORDERED: MORPHINE SULFATE 4 MG/ML DISP.SYRIN. IV ONE (12:45)
[2020-02-26] MEDS ORDERED: cefTRIAXone SODIUM 1 GM VIAL ONE ×2 (12:46→13:00)
--- NOTE | 2020-02-26 13:37 | RAD ---
CT ABD PELV W/ORAL IV CONTRAST History: Reason: ABCESS TO MID LOWER BACK / Spl. Instructions: / History: Technique: After the administration of intravenous contrast, CT imaging was performed of the abdomen and pelvis. Multiplanar images are reviewed. Exposure: One or more of the following individualized dose reduction techniques were utilized for this examination: 1. Automated exposure control 2. Adjustment of the mA and/or kV according to patient size 3. Use of iterative reconstruction technique. Comparison: April 10, 2017 Findings: Lower chest: No consolidation or pleural effusion. Abdomen and pelvis: The liver, spleen, adrenal glands, pancreas and gallbladder are unremarkable. No biliary ductal dilatation. Patent portal and hepatic veins. Unremarkable appearance of the kidneys. No hydronephrosis. Mild urinary bladder wall thickening. Moderate stool-filled colon. Normal appendix. No evidence of bowel obstruction. Oral contrast opacifies to the level of the mid to distal small bowel. No pathologic lymphadenopathy. No ascites. Induration of the posterior sacral subcutaneous tissues with foci of gas. Tract appears to extend to the gluteal cleft. No significant fluid component to suggest abscess. The gas may relate to infection or recent intervention. Bones: Grade 1 anterolisthesis L5 on S1 due to chronic bilateral L5 spondylolysis. Mild associated L5-S1 degenerative disc changes. Impression: 1. Sinus tract within the midline gluteal subcutaneous fat infiltration extending to the posterior sacral region with foci of gas. No significant fluid component to suggest abscess. 2. Mild urinary bladder wall thickening, may relate to nondistention. Correlate for cystitis. Electronically signed by: Mark Collazo DO (02/26/2020 1:34 PM) [id number]
[2020-02-26] MEDS ORDERED: ACET10SO2 PO (13:49)
[2020-02-26] MEDS ORDERED: CLIN300C8 PO (13:57)
[2020-02-26 14:00] VITALS: BP 144/100
[2020-02-26] MEDS ORDERED: oxyCODONE/APAP 5/325 1 TAB TABLET PO ONE (14:15)
== END 2020-02-26 14:20 | disposition home or self-care (01) ==
LOC: ER 11:01
DX: L03.317 Cellulitis of buttock (principal); L98.8 Other specified disorders of the skin and subcutaneous tissue
CPT/HCPCS: 36415; 74177; 80053; 85025; 96365; 96375; 99285; J0696; J2270; Q9966; Q9967